=== PATIENT | male | born 1935 | race Caucasian/White ===

== ENCOUNTER → 2022-12-03 | Emergency (ER) | payer MEDICARE ==
[~2022-12-03] VITALS: Ht 167.6 cm; Wt 65.9 kg
[~2022-12-03] MED LIST: METF500T PO
[2022-12-03 12:34] VITALS: BP 133/58
[2022-12-03 12:56] LABS: BASOPHILS % (AUTO) 0.2 % (0-1); EOSINOPHILS % (AUTO) 0.1 % (0-6); HEMATOCRIT 35.5 % (42.0-52.0); HEMOGLOBIN 11.3 g/dl (14.0-17.9); LYMPHOCYTES # (AUTO) 0.7 X10'3 (1.1-4.8); LYMPHOCYTES % (AUTO) 9.2 % (21-51); MEAN CORPUSCULAR HEMOGLOBIN 28.9 PG (27.0-31.0); MEAN CORPUSCULAR HGB CONC 31.8 g/dL (33.0-36.5); MEAN CORPUSCULAR VOLUME 90.7 FL (78-98); MONOCYTES # (AUTO) 0.6 X10'3 (0-0.9); MONOCYTES % (AUTO) 8.3 % (2-12); NEUTROPHILS # (AUTO) 6.2 X10'3 (1.8-7.7); NEUTROPHILS % (AUTO) 82.2 % (42-75); PLATELET COUNT 189 X10'3 (140-440); RED BLOOD COUNT 3.91 X10'6 (4.70-6.10); RED CELL DISTRIBUTION WIDTH 15.3 % (11.5-14.5); WHITE BLOOD COUNT 7.6 X10'3 (4.5-11.0)
[2022-12-03 13:54] LABS: ALANINE AMINOTRANSFERASE 11 U/L (12-78); ALBUMIN 3.1 G/DL (3.4-5.0); ALBUMIN/GLOBULIN RATIO 1.1 (1.1-1.5); ALKALINE PHOSPHATASE 157 IU/L (46-116); ANION GAP 8 (8-16); ASPARTATE AMINO TRANSFERASE 44 U/L (10-37); BILIRUBIN,TOTAL 0.8 MG/DL (0.1-1.0); BLOOD UREA NITROGEN 14 MG/DL (7-18); BUN/CREATININE RATIO 16.1 (5.4-32.0); CHLORIDE 108 MMOL/L (99-107); CREATININE 0.87 MG/DL (0.60-1.10); GLUCOSE 135 MG/DL (70-104); SODIUM 145 MMOL/L (135-145); TOTAL CARBON DIOXIDE 29.1 MMOL/L (24-32); TOTAL PROTEIN 5.9 G/DL (6.4-8.2); eGFR 83 ML/MIN
--- NOTE | 2022-12-03 15:02 | NUR ---
Patient evaluated, treated and discharged by provider.
== END | disposition home or self-care (01) ==
LOC: ER 12:25
DX: E86.0 Dehydration (principal); R55 Syncope and collapse; E78.00 Pure hypercholesterolemia, unspecified; I10 Essential (primary) hypertension; E11.9 Type 2 diabetes mellitus without complications; Z98.890 Other specified postprocedural states; Z79.84 Long term (current) use of oral hypoglycemic drugs
CPT/HCPCS: 36415; 71045; 80053; 83735; 83880; 84484; 85025; 93005; 99285

== ENCOUNTER 2023-03-05 21:35 | Emergency (ER) | payer MEDICARE ==
[~2023-03-05] VITALS: Ht 172.7 cm; Wt 55.9 kg
[2023-03-05] MEDS ORDERED: acetaminophen 325mg tablet PO ONE (22:25)
[2023-03-05] MEDS ORDERED: TETanus/Pertussis (Acell)/Diphther VAC/PF (Tdap-Adult) 0.5ml syringe IMVAC ONE (23:15)
[2023-03-06 00:03] VITALS: BP 146/54
== END 2023-03-06 00:05 | disposition home or self-care (01) ==
LOC: ER 21:36
DX: S01.01XA Laceration without foreign body of scalp, initial encounter (principal); E78.00 Pure hypercholesterolemia, unspecified; I10 Essential (primary) hypertension; E11.9 Type 2 diabetes mellitus without complications; G20 Parkinson's disease; F02.80 Dementia in other diseases classified elsewhere, unspecified severity, without behavioral disturbance, psychotic disturbance, mood disturbance, and anxiety; W45.8XXA Other foreign body or object entering through skin, initial encounter; Y93.89 Activity, other specified; Y92.89 Other specified places as the place of occurrence of the external cause; Y99.8 Other external cause status
CPT/HCPCS: 70450; 72125; 90471; 90715; 99285; J7030; A6449

== ENCOUNTER → 2023-10-15 | Emergency (ER) | payer MEDICARE ==
[~2023-10-15] VITALS: Ht 172.7 cm; Wt 54.5 kg
[2023-10-15 13:36] VITALS: BP 113/67; PULSE 64; RESP 18; TEMP 99; O2SAT 99
== END | disposition home or self-care (01) ==
LOC: ER 13:35
DX: I95.9 Hypotension, unspecified (principal); Z00.8 Encounter for other general examination
CPT/HCPCS: 99281